=== PATIENT | female | born 1985 | race Caucasian/White ===

== ENCOUNTER 2016-11-12 14:00 | Emergency (ER) | payer OTHER, BC ==
[~2016-11-12] VITALS: Ht 157.5 cm; Wt 94.1 kg
[~2016-11-12 14:00] MED LIST: CLON0.5T3 PO; FLINTSTONE VITAMINS PO; FLV400 PO; LVQ750 PO; MDR PO; ROPI1TAB PO
[2016-11-12 14:11] VITALS: TEMP 37.1; Ht 157.5 cm; Wt 94.1 kg
[2016-11-12] MEDS ORDERED: SODIUM CHLORIDE 0.9% 1000ML 1,000 ML IV STA (15:39)
--- NOTE | 2016-11-12 15:46 | EMERGENCY ROOM VISIT NOTE ---
History First contact with patient: 15:25 Chief Complaint: RECTAL BLEEDING Stated Complaint: RECTAL BLEEDING, DEHYDRATION Nursing Triage Summary: Pt reports 10/16 gastric bypass suregery, "I got really constipated", reports doctor told her to do and enema, pt has fissures, states "it was all blood and I'm sure I'm dehydrated now'. pain in abd and rectal area History of Present Illness The patient is a 31 year old female who presents to the Emergency Room via private vehicle accompanied by with complaints of "rectal bleeding, dehydration". The patient states that she had gastric bypass surgery performed by Dr. Hartman in [facility] on October 162016. She states that she's been limited in what she can eat and drink and recently was started on soft cheeses about one week ago. She states around the same time she developed lower abdominal pain as well as hard stools. She has a history of anal fissures, and notes that this morning she had a bowel movement and when she wiped there was blood on the toilet paper and in the bowl. This was bright red blood. She states she called Dr. Hartman's office this morning, and informed her that she should come to be evaluated. She also notes a 2 pound weight loss per day up until this past week when she began eating soft cheeses and that has since helped her weight remained constant. She rates lower quadrant abdominal pain is a 3/10, also she has rectal pain with defecation. She believes this is her anal fissures. She has a history of appendectomy, and 2 C-sections. There is associated nausea. She denies any history of Crohn's, ulcerative colitis, fevers, chills, vomiting. Review of Systems A complete 10-point Review of Systems was discussed with the patient, with pertinent positives and negatives listed in the History of Present Illness. All remaining Review of Systems questions can be considered negative unless otherwise specified. Past Medical/Surgical History Medical Problems: (1) Depression (2) Disorder of eating (3) Morbid obesity (4) ALVARADO on CPAP (5) Restless leg syndrome (6) Sepsis Surgical Problems: (1) History of appendectomy (2) History of section (3) History of tubal ligation (4) Hx of bilateral breast reduction surgery (5) S/P ACL repair Social History Smoking Status: Never Smoker Drug Use: none Marital Status: Housing Status: lives with family Occupation Status: employed Current/Historical Medications Scheduled Clonazepam (Klonopin), 0.5 MG PO HS Nitroglycerin (Intra-Anal) (Rectiv), 1 APPL RE BID Omeprazole (Prilosec), 20 MG PO DAILY Ropinirole (Requip), 0.5 MG PO HS Allergies Coded Allergies: Mushroom (Verified Allergy, Severe, ANAPHYLAXIS, 11/12/16) Chocolate (Verified Allergy, Intermediate, HIVES, 09/16/09) Mushroom Extract Complex (Unverified Allergy, Intermediate, EPIPEN NEEDED , 11/12/16) Penicillins (Verified Allergy, Unknown, MOTHER HAD ALLERGY, 11/12/16) Morphine (Verified Adverse Reaction, Unknown, VOMITS, 11/12/16) Physical Exam Vital Signs Date Time Temp Pulse Resp B/P Pulse Ox O2 Delivery O2 Flow Rate FiO2 11/12/16 20:09 69 18 119/70 98 Room Air 11/12/16 19:30 71 20 124/68 98 Room Air 11/12/16 17:45 64 17 127/73 98 Room Air 11/12/16 16:30 68 18 128/76 97 Room Air 11/12/16 14:11 37.1 97 18 119/82 96 Room Air Physical Exam VITAL SIGNS - Vital signs and nursing notes were reviewed. Patient is afebrile , normotensive, non-tachycardic and is saturating well on room air 96%. GENERAL -31-year-old female appearing her stated age who is in no acute distress. Communicates well with provider and answers questions appropriately. SKIN - Without rashes. HEAD - NC/AT. EYES - PERRL with EOMI bilaterally. Sclera anicteric. Palpebral conjunctiva pink and moist with no injection noted. EARS - No deformities of external structures noted on gross examination bilaterally. NOSE - Midline and without cyanosis. No epistaxis or purulent drainage noted. Septum midline without deviation or septal hematoma noted. MOUTH/OROPHARYNX - Without perioral cyanosis. Buccal mucosa pink and moist and without leukoplakia. Tongue midline with equal elevation of palate bilaterally. No tonsillar hypertrophy, erythema, or exudates noted. Fair dentition noted. NECK - Neck with FROM. Supple to palpation. No lymphadenopathy noted. No nuchal rigidity. LUNGS - Chest wall symmetric without accessory muscle use, intercostals retractions, or central cyanosis. Normal vesicular breath sounds CTA B/L. No wheezes, rales, or rhonchi appreciated. CARDIAC - RRR with S1/S2. No murmur, rubs, or gallops appreciated. ABDOMEN - Abdominal contour no without pulsations or visible masses. BS normoactive all four quadrants. There is generalized diffuse abdominal pain. The abdomen is soft and nonrigid. No palpable masses, hepatosplenomegaly, or ascites noted. EXTREMITIES - No clubbing or peripheral cyanosis. No pretibial edema present. +5 /5 strength noted in UE/LE bilaterally. NEUROLOGIC - Cranial nerves II through XII grossly intact. Sensory intact to light touch throughout. PSYCH - A&Ox3 and cooperates fully with examiner. Pt is very pleasant and interacts well with examiner. Rectal exam: Performed at 1730 with nurse as java developer with security clearance. This was performed after patient consent. No external hemorrhoids visualized. No definite fissure visualized. Digital rectal exam unremarkable. Patient states that she had a burning sensation during this. The area was cleansed and a minimal amount of bright red blood was noted. Medical Decision & Procedures ER Provider Diagnostic Interpretation: ABDOMINAL ULTRASOUND, RIGHT UPPER QUADRANT HISTORY: Abdominal pain. COMPARISON: CT of the abdomen and pelvis April 08, 2016. FINDINGS: Liver morphology is normal. No hepatic lesions are identified. There is sludge within the gallbladder. There are no gallstones. There is no gallbladder wall thickening. The pancreas is largely obscured by overlying bowel gas. There is no right hydronephrosis. There is no biliary ductal dilatation. IMPRESSION: 1. No gallstones or biliary ductal dilatation. 2. Sludge within the gallbladder. No gallbladder wall thickening. 2. Largely obscured pancreas. Electronically signed by: Aaron Chew M.D. 11/12/2016 6:24 PM Dictated Date/Time: 11/12/2016 6:[address] OF THE ABDOMEN AND PELVIS WITH CONTRAST CLINICAL HISTORY: Lower abdominal pain. Rectal bleeding. Recent gastric bypass. COMPARISON STUDY: CT of the abdomen and pelvis April 08, 2016 and right upper quadrant ultrasound performed earlier today. TECHNIQUE: Following IV administration of 120 mL of Optiray-320, axial images of the abdomen and pelvis were obtained from the lung bases to the proximal femurs. Images were reviewed in the axial, sagittal, and coronal planes. IV contrast was administered without complication. Oral contrast was administered. CT DOSE: 741.55 mGy.cm FINDINGS: Lung bases are clear. The liver, spleen, adrenal glands and pancreas are normal. There is no biliary or pancreatic ductal dilatation. There are expected findings following gastric bypass. There is no evidence for a bowel obstruction. There is no fluid collection. The appendix is not visualized. A small amount of fluid within the pelvis is noted. This may be physiologic. Caliber and wall thickness of small and large bowel are normal. Bilateral renal calculi measure up to 5 mm. There are no ureteral calculi. There is no hydronephrosis. IMPRESSION: 1. Bilateral nephrolithiasis. No ureteral catheter site. 2. Status post gastric bypass. Expected postsurgical findings. No bowel obstruction. No bowel wall thickening. 3. Small amount of fluid within the pelvis which may be physiologic. Electronically signed by: Aaron Chew M.D. 11/12/2016 7:15 PM Dictated Date/Time: 11/12/2016 7:11 PM Laboratory Results 11/12/16 16:00 Red Blood Count 5.83, Mean Corpuscular Volume 76.5, Mean Corpuscular Hemoglobin 26.2, Mean Corpuscular Hemoglobin Concent 34.3, Mean Platelet Volume 11.6, Neutrophils (%) (Auto) 70.6, Lymphocytes (%) (Auto) 18.7, Monocytes (%) (Auto) 8.7, Eosinophils (%) (Auto) 1.4, Basophils (%) (Auto) 0.4, Neutrophils # (Auto) 5.67, Lymphocytes # (Auto) 1.50, Monocytes # (Auto) 0.70, Eosinophils # (Auto) 0.11, Basophils # (Auto) 0.03 11/12/16 16:00 Test 11/12/16 16:00 11/12/16 17:25 White Blood Count 8.03 K/uL (4.8-10.8) Red Blood Count 5.83 M/uL (4.2-5.4) Hemoglobin 15.3 g/dL (12.0-16.0) Hematocrit 44.6 % (37-47) Mean Corpuscular Volume 76.5 fL (80-100) Mean Corpuscular Hemoglobin 26.2 pg (25-34) Mean Corpuscular Hemoglobin Concent 34.3 g/dl (32-36) Platelet Count 247 K/uL (130-400) Mean Platelet Volume 11.6 fL (7.4-10.4) Neutrophils (%) (Auto) 70.6 % Lymphocytes (%) (Auto) 18.7 % Monocytes (%) (Auto) 8.7 % Eosinophils (%) (Auto) 1.4 % Basophils (%) (Auto) 0.4 % Neutrophils # (Auto) 5.67 K/uL (1.4-6.5) Lymphocytes # (Auto) 1.50 K/uL (1.2-3.4) Monocytes # (Auto) 0.70 K/uL (0.11-0.59) Eosinophils # (Auto) 0.11 K/uL (0-0.5) Basophils # (Auto) 0.03 K/uL (0-0.2) RDW Standard Deviation 42.4 fL (36.4-46.3) RDW Coefficient of Variation 15.3 % (11.5-14.5) Immature Granulocyte % (Auto) 0.2 % Immature Granulocyte # (Auto) 0.02 K/uL (0.00-0.02) Prothrombin Time 11.4 SECONDS (9.0-12.0) Prothromb Time International Ratio 1.1 (0.9-1.1) Activated Partial Thromboplast Time 28.4 SECONDS (21.0-31.0) Partial Thromboplastin Ratio 1.1 Anion Gap 15.0 mmol/L (3-11) Est Creatinine Clear Calc Drug Dose 112.1 ml/min Estimated GFR () 118.4 Estimated GFR (Non- 102.2 BUN/Creatinine Ratio 15.2 (10-20) Calcium Level 9.4 mg/dl (8.5-10.1) Magnesium Level 1.7 mg/dl (1.8-2.4) Total Bilirubin 1.4 mg/dl (0.2-1) Aspartate Amino Transf (AST/SGOT) 18 U/L (15-37) Alanine Aminotransferase (ALT/SGPT) 28 U/L (12-78) Alkaline Phosphatase 81 U/L (45-117) Total Protein 8.3 gm/dl (6.4-8.2) Albumin 4.2 gm/dl (3.4-5.0) Globulin 4.1 gm/dl (2.5-4.0) Albumin/Globulin Ratio 1.0 (0.9-2) Amylase Level 85 U/L (25-115) Lipase 441 U/L (73-393) Urine Color DK YELLOW Urine Appearance CLOUDY (CLEAR) Urine pH 5.5 (4.5-7.5) Urine Specific [place] 1.032 (1.000-1.030) Urine Protein 1+ (NEG) Urine Glucose (UA) NEG (NEG) Urine Ketones 4+ (NEG) Urine Occult Blood NEG (NEG) Urine Nitrite NEG (NEG) Urine Bilirubin NEG (NEG) Urine Urobilinogen NEG (NEG) Urine Leukocyte Esterase NEG (NEG) Urine WBC (Auto) 5-10 /hpf (0-5) Urine RBC (Auto) 0-4 /hpf (0-4) Urine Hyaline Casts (Auto) 1-5 /lpf (0-5) Urine Epithelial Cells (Auto) >30 /lpf (0-5) Urine Bacteria (Auto) 2+ (NEG) Urine Test NEG (NEG) Medications Administered Medications (Trade) Dose Ordered Sig/[place] Route Start Time Stop Time Status Last Admin Dose Admin Sodium Chloride (Nss 1000ml) 1,000 ml @ 999 mls/hr Q1H1M STAT IV 11/12/16 15:39 11/12/16 16:39 DC 11/12/16 15:39 999 MLS/HR Medical Decision The patient was seen and evaluated as above. After obtaining a thorough history and physical examination IV access was initiated and the above workup was performed. The patient was offered different imaging modalities to assess her pain, and ultimately chose a CT scan which I believe is reasonable given her presentation and underlying, comorbidities She was offered a pelvic exam however through joint decision making it was decided to not perform this. She has not had sexual contact since her surgery. She denied any urinary symptoms or vaginal discharge. There is no vaginal bleeding. The patient appears to be experiencing was likely constipation secondary to recent change in dietary advancement status post gastric bypass surgery. She also has a history of anal fissures and states this feels similar to previous. She was hydrated with liter of normal saline. In review of her blood work, no leukocytosis, or blood cell counts slightly high, no anemia, coagulation studies within normal limits, no slight imbalance, anion gap is elevated at 15, magnesium is low at 1.7, total bilirubin is high at 1.4, total protein elevated at 8.3, globulin 4.1 and lipase 441. Urine ketones 4+, white blood cell count 5-10, greater than 30 epithelial cells and 2+ urine bacteria. Negative urine test. Gallbladder ultrasound was performed secondary to generalized abdominal pain, as well as total bilirubin elevation. This reveals sludge within the gallbladder. No evidence of acute cholecystitis. She was educated to follow- up with her family doctor regarding this. CT scan of the abdomen and pelvis was thoroughly discussed with the patient. There were no acute findings that would alter today's management. There were bilateral nephrolithiasis. She is status post surgery. Small amount of fluid within the pelvis which I believe is physiologic. This was discussed with the patient. She was further hydrated with normal saline. She does on any for pain. I do suspect that this time she can be discharged home with close follow-up with her family doctor. She was educated upon worrisome symptoms which to return, was discharged home instructed to take a stool softener such as Colace, use sitz baths and was also given topical nitroglycerin for her anal fissures. She was educated upon worrisome symptoms which to return, had questions answered prior to discharge and was discharged home in good condition. In evaluation treatment this patient the following differential diagnoses were entertained: Bowel obstruction, pyelonephritis, renal calculi, constipation, cholecystitis, anal fissures, hemorrhoids, among others. Impression Primary Impression: Lower abdominal pain Additional Impression: Anal fissure Departure Information Dispostion Home / Self-Care Condition GOOD Prescriptions Nitroglycerin (Intra-Anal) (RECTIV) 0.4 % Oin 1 APPL RE BID for 60 Days, #1 TUBE 1 Refill Prov: Nirav Medel PA-C 11/12/16 Referrals Shaq Cleaning M.D. (PCP) Patient Instructions My [facility] Additional Instructions You were seen in the emergency Department for lower quadrant abdominal pain as well as anal fissure. Please follow up with her family doctor by calling their office first thing tomorrow morning to request follow-up. Please follow-up regarding today's findings as we discussed. Please follow your fluid and food intake protocol as per your doctor who performed the gastric bypass. Please continue trying to eat foods. An [id number] stool softener such as Colace is recommended. You have been prescribed Rectiv to help with the anal fissure. This is nitroglycerin and is to be applied twice daily. Please be careful at this medication can cause your blood pressure drop. Please apply while sitting down and stand up carefully. If you develop dizziness, lightheadedness please discontinue and return immediately. It is recommended you should use SITZ baths which can be purchased over-the- counter. Please return to emergency department with any new/concerning symptoms. Problem Qualifiers
[2016-11-12] MEDS ORDERED: CLON0.5T3 PO (16:06)
[2016-11-12] MEDS ORDERED: ROPI0.5T15 PO (16:06)
[2016-11-12] MEDS ORDERED: PRLSR20 PO (16:06)
[2016-11-12 16:12] LABS: BASO % 0.4 %; BASO ABS # 0.03 K/uL (0-0.2); COMPLETE YES; EOS % 1.4 %; HEMATOCRIT 44.6 % (37-47); IG% 0.2 %; LYMPH % 18.7 %; MEAN CELL VOLUME 76.5 fL (80-100); MEAN CORPUSCULAR HEMOGLOBIN 26.2 pg (25-34); MEAN CORPUSCULAR HGB CONC 34.3 g/dl (32-36); MEAN PLATELET VOLUME 11.6 fL (7.4-10.4); MONO % 8.7 %; NEUT % 70.6 %; PLATELET COUNT 247 K/uL (130-400); RED BLOOD COUNT 5.83 M/uL (4.2-5.4); WHITE BLOOD COUNT 8.03 K/uL (4.8-10.8)
[2016-11-12 16:21] LABS: INR 1.1 (0.9-1.1); PARTIAL THROMBOPLASTIN RATIO 1.1; PROTHROMBIN TIME (PATIENT) 11.4 SECONDS (9.0-12.0)
[2016-11-12 16:32] LABS: BUN/CREATININE RATIO 15.2 (10-20); CALCIUM 9.4 mg/dl (8.5-10.1); CREATININE 0.77 mg/dl (0.60-1.20); MAGNESIUM 1.7 mg/dl (1.8-2.4); POTASSIUM 3.7 mmol/L (3.5-5.1)
[2016-11-12 17:43] LABS: URINE APPEARANCE CLOUDY (CLEAR); URINE BILIRUBIN NEG (NEG); URINE COLOR DK YELLOW; URINE EPITHELIAL CELL AUTO >30 /lpf (0-5); URINE NITRITE NEG (NEG); URINE PH 5.5 (4.5-7.5); URINE SPECIFIC GRAVITY 1.032 (1.000-1.030); UROBILINOGEN NEG (NEG); ZZUR CULT IF INDIC CLEAN CATCH YES
[2016-11-12 17:45] LABS: MANUAL MICROSCOPIC REQUIRED? NO; REVIEW REQ? NO
[2016-11-12] MEDS ORDERED: OPTIRAY 320 IV PRN (18:00)
--- NOTE | 2016-11-12 18:25 | DIAGNOSTIC IMAGING REPORT ---
ABDOMINAL ULTRASOUND, RIGHT UPPER QUADRANT HISTORY: Abdominal pain. COMPARISON: CT of the abdomen and pelvis April 08, 2016. FINDINGS: Liver morphology is normal. No hepatic lesions are identified. There is sludge within the gallbladder. There are no gallstones. There is no gallbladder wall thickening. The pancreas is largely obscured by overlying bowel gas. There is no right hydronephrosis. There is no biliary ductal dilatation. IMPRESSION: 1. No gallstones or biliary ductal dilatation. 2. Sludge within the gallbladder. No gallbladder wall thickening. 2. Largely obscured pancreas. Electronically signed by: Aaron Chew M.D. 11/12/2016 6:24 PM Dictated Date/Time: 11/12/2016 6:22 PM
[2016-11-12 18:36] LABS: AMYLASE 85 U/L (25-115)
--- NOTE | 2016-11-12 19:16 | DIAGNOSTIC IMAGING REPORT ---
CT OF THE ABDOMEN AND PELVIS WITH CONTRAST CLINICAL HISTORY: Lower abdominal pain. Rectal bleeding. Recent gastric bypass. COMPARISON STUDY: CT of the abdomen and pelvis April 08, 2016 and right upper quadrant ultrasound performed earlier today. TECHNIQUE: Following IV administration of 120 mL of Optiray-320, axial images of the abdomen and pelvis were obtained from the lung bases to the proximal femurs. Images were reviewed in the axial, sagittal, and coronal planes. IV contrast was administered without complication. Oral contrast was administered. CT DOSE: 741.55 mGy.cm FINDINGS: Lung bases are clear. The liver, spleen, adrenal glands and pancreas are normal. There is no biliary or pancreatic ductal dilatation. There are expected findings following gastric bypass. There is no evidence for a bowel obstruction. There is no fluid collection. The appendix is not visualized. A small amount of fluid within the pelvis is noted. This may be physiologic. Caliber and wall thickness of small and large bowel are normal. Bilateral renal calculi measure up to 5 mm. There are no ureteral calculi. There is no hydronephrosis. IMPRESSION: 1. Bilateral nephrolithiasis. No ureteral catheter site. 2. Status post gastric bypass. Expected postsurgical findings. No bowel obstruction. No bowel wall thickening. 3. Small amount of fluid within the pelvis which may be physiologic. Electronically signed by: Aaron Chew M.D. 11/12/2016 7:15 PM Dictated Date/Time: 11/12/2016 7:11 PM
[2016-11-12] MEDS ORDERED: NITR1OIN RE (20:04)
[2016-11-12 20:09] VITALS: BP 119/70; PULSE 69; O2SAT 98
== END 2016-11-12 20:13 | disposition home or self-care (01) ==
LOC: C.EDB 14:01
DX: R10.30 Lower abdominal pain, unspecified (principal); K60.2 Anal fissure, unspecified; E86.0 Dehydration; F32.9 Major depressive disorder, single episode, unspecified; E66.01 Morbid (severe) obesity due to excess calories; G47.33 Obstructive sleep apnea (adult) (pediatric); G25.81 Restless legs syndrome; N20.0 Calculus of kidney

== ENCOUNTER 2017-03-24 12:19 | Emergency (ER) | payer OTHER ==
[~2017-03-24] VITALS: Ht 157.5 cm; Wt 72.0 kg
[~2017-03-24 12:19] MED LIST changes: -FLINTSTONE VITAMINS PO; -FLV400 PO; -LVQ750 PO; -MDR PO; +NITR1OIN RE; +PRLSR20 PO; +ROPI0.5T15 PO; -ROPI1TAB PO
[2017-03-24 12:20] VITALS: TEMP 36.8; Ht 157.5 cm; Wt 72.0 kg
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
[2017-03-24 14:18] LABS: BASO % 0.4 %; BASO ABS # 0.03 K/uL (0-0.2); COMPLETE YES; EOS % 0.6 %; HEMATOCRIT 37.4 % (37-47); IG% 0.2 %; LYMPH % 18.3 %; LYMPH ABS # 1.51 K/uL (1.2-3.4); MEAN CORPUSCULAR HEMOGLOBIN 26.2 pg (25-34); MEAN CORPUSCULAR HGB CONC 32.4 g/dl (32-36); MEAN PLATELET VOLUME 10.8 fL (7.4-10.4); MONO % 7.1 %; NEUT % 73.4 %; PLATELET COUNT 263 K/uL (130-400); RED BLOOD COUNT 4.62 M/uL (4.2-5.4); WHITE BLOOD COUNT 8.27 K/uL (4.8-10.8)
[2017-03-24 14:35] LABS: BUN/CREATININE RATIO 20.3 (10-20); CREATININE 0.59 mg/dl (0.60-1.20); POTASSIUM 3.8 mmol/L (3.5-5.1)
[2017-03-24 14:38] LABS: ALB/GLOB RATIO 1.1 (0.9-2)
[2017-03-24 15:03] VITALS: BP 118/72; PULSE 75; O2SAT 100
--- NOTE | 2017-03-25 14:05 | Pharmacy Progress Note ---
ED Pharmacist Progress Note Date of Service: Mar 25, 2017. Patient was seen in ER yesterday for post-occupational exposure prophylaxis revaluation. She was given a 4 days supply for Raltegravir + Truvada from her employer and was seen in the ER where she was evaluated and baseline labs drawn. She was discharged with instructions to return to her employee health department for Rx's for the remainder of the 28 days-supply of PEP regimen. She called the ER today stating her employer instructed her to go to [employer] to obtain Rx's for Raltegravir and Truvada. However [employer] was not agreeable to doing this and instructed the patient to return to her employee health department. I spoke with Dr Jovel who gave written Rx's for both Raltegravir 400mg PO BID x 24 days + Truvada 200/300 PO daily x 24 days to complete the 28 day course. The Rx's were placed in an envelope in the central command office and she was instructed to report to the ER registration desk to request these Rx's.
[2017-03-28 16:35] LABS: HEPATITIS BE ANTIBODY TC 556 Nonreactive
== END 2017-03-24 15:04 | disposition home or self-care (01) ==
LOC: C.EDB 12:19 → C.EDD 15:04
DX: Z77.21 Contact with and (suspected) exposure to potentially hazardous body fluids (principal); F41.9 Anxiety disorder, unspecified; G25.81 Restless legs syndrome; E66.01 Morbid (severe) obesity due to excess calories; G47.33 Obstructive sleep apnea (adult) (pediatric); F32.9 Major depressive disorder, single episode, unspecified

== ENCOUNTER → 2017-04-01 | Outpatient (CLI) | payer OTHER ==
[~2017-04-01] MED LIST changes: -NITR1OIN RE; -PRLSR20 PO
[2017-04-01 14:30] LABS: URINE APPEARANCE CLOUDY (CLEAR); URINE BILIRUBIN NEG (NEG); URINE COLOR YELLOW; URINE EPITHELIAL CELL AUTO >30 /lpf (0-5); URINE NITRITE NEG (NEG); URINE PH 5.5 (4.5-7.5); URINE SPECIFIC GRAVITY 1.022 (1.000-1.030); UROBILINOGEN NEG (NEG)
[2017-04-01 14:49] LABS: ALT/SGPT 24 U/L (12-78); BLOOD UREA NITROGEN 14 mg/dl (7-18); BUN/CREATININE RATIO 17.9 (10-20); CARBON DIOXIDE 25 mmol/L (21-32); CHLORIDE 106 mmol/L (98-107); CREATININE 0.77 mg/dl (0.60-1.20); GLUCOSE 75 mg/dl (70-99); POTASSIUM 4.2 mmol/L (3.5-5.1); SODIUM 139 mmol/L (136-145)
[2017-04-01 14:50] LABS: BASO % 0.3 %; BASO ABS # 0.02 K/uL (0-0.2); COMPLETE YES; EOS % 1.7 %; HEMATOCRIT 38.4 % (37-47); IG% 0.3 %; LYMPH % 23.5 %; LYMPH ABS # 1.38 K/uL (1.2-3.4); MEAN CELL VOLUME 79.5 fL (80-100); MEAN CORPUSCULAR HEMOGLOBIN 26.5 pg (25-34); MEAN CORPUSCULAR HGB CONC 33.3 g/dl (32-36); MEAN PLATELET VOLUME 11.2 fL (7.4-10.4); MONO % 7.5 %; NEUT % 66.7 %; PLATELET COUNT 262 K/uL (130-400); RED BLOOD COUNT 4.83 M/uL (4.2-5.4); WHITE BLOOD COUNT 5.88 K/uL (4.8-10.8)
[2017-04-01 14:52] LABS: ALKALINE PHOSPHATASE 79 U/L (45-117); AST/SGOT 19 U/L (15-37)
[2017-04-01 14:55] LABS: MANUAL MICROSCOPIC REQUIRED? NO; REVIEW REQ? NO
== END | disposition home or self-care (01) ==
LOC: C.LAB1850 12:49
PROVIDERS: ATTEND Preventive Medicine Occupational Medicine
DX: Z77.21 Contact with and (suspected) exposure to potentially hazardous body fluids (principal); R11.0 Nausea; R19.7 Diarrhea, unspecified

== ENCOUNTER → 2017-05-13 | Outpatient (CLI) | payer OTHER | END | disposition home or self-care (01) | LOC: C.LABSPEC 16:41 | PROVIDERS: ATTEND Preventive Medicine Occupational Medicine | DX: Z77.21 Contact with and (suspected) exposure to potentially hazardous body fluids (principal) ==

== ENCOUNTER → 2017-06-24 | Outpatient (CLI) | payer OTHER | END | disposition home or self-care (01) | LOC: C.LABSPEC 17:23 | PROVIDERS: ATTEND Preventive Medicine Occupational Medicine | DX: Z77.21 Contact with and (suspected) exposure to potentially hazardous body fluids (principal) ==

== ENCOUNTER → 2017-10-03 | Outpatient (CLI) | payer OTHER | END | disposition home or self-care (01) | LOC: C.LABSPEC 12:16 | PROVIDERS: ATTEND Nurse Practitioner Family | DX: Z77.29 Contact with and (suspected) exposure to other hazardous substances (principal) ==

== ENCOUNTER → 2017-11-05 | Outpatient (CLI) | payer OTHER | LOC: C.LABSPEC 14:38 | PROVIDERS: ATTEND Nurse Practitioner Family | DX: Z77.21 Contact with and (suspected) exposure to potentially hazardous body fluids (principal) ==